=== PATIENT | female | born 1975 | race Caucasian/White ===

== ENCOUNTER 2021-07-27 17:24 | Emergency (ER) | payer SELFPAY ==
[2021-07-27 18:56] VITALS: BP 122/66; PULSE 124; RESP 20; TEMP 37.4; O2SAT 95; BMI 29.0
--- NOTE | 2021-07-27 19:04 | ED_ITS ---
HPI - Female Genitourinary General: Chief complaint: Abdominal Pain Stated complaint: poss uti n/v/headache wants to go to stress unit Time Seen by Provider: 07/27/21 19:32 History of Present Illness: HPI Narrative: Patient is a 46-year-old female comes to the ED with UTI. Patient says symptoms started approximately a week and a half ago. She was taking Azo and her symptoms were improving a little bit but over the past several days they have gotten worse. She is complaining of having bilateral lower abdominal pain, bilateral kidney/mid back pain, increased urine frequency and dysuria. She rates her pain currently an 8 out of 10. She started having nausea and vomiting as well for the past 24 hours. She has had UTI like this before and ended up going to her kidneys and she had to be hospitalized. Patient states that her heart rate is usually elevated over 100 normally Associated symptoms: Reports abdominal pain and nausea; Deny headache(s) Review of Systems Const: Denies: fever(s), chills or fatigue Eyes: Denies: change in vision or eye discomfort ENMT: Denies: throat pain, odynophagia, nasal discharge or nasal congestion Card: Denies: chest pain, palpitations, edema, swelling of feet/ankles, dyspnea on exertion or orthopnea Resp: Denies: dyspnea, productive cough or non-productive cough GI: Reports: abdominal pain, nausea and vomiting; Denies: diarrhea, constipation or hematochezia : Reports: flank pain, dysuria and urinary frequency (increased frequency); Denies: hematuria Musc: Denies: neck pain, back pain or extremity swelling Skin/Breast: Denies: rash or new lesions Neuro: Denies: headache(s), numbness in extremities or weakness in extremities Physical Exam Const: COMMON NORMALS: patient oriented x3 and alert GENERAL APPEARANCE: cooperative and in distress (pt appears uncomfortable and is crying) HENMT: COMMON NORMALS: normocephalic HEAD & SCALP: normocephalic MOUTH: Normal oral and palatal mucosa present THROAT: posterior oropharynx normal and uvula midline Eye: COMMON NORMALS: Equal, round and reactive pupils present PUPIL: Yes Equal, round and reactive pupils present Neck/C-Spine: COMMON NORMALS: supple GENERAL: Yes normal visual inspection Resp: COMMON NORMALS: normal respiratory effort, No retractions, No use of accessory muscles and clear to auscultation bilaterally AUSCULTATION: clear to auscultation bilaterally Cardio: COMMON NORMALS: regular rate, regular rhythm, S1 normal heart sound present, S2 normal heart sound present, No gallops present (Cardio), No clicks present (Cardio), No murmurs present (Cardio) and Peripheral pulses 2+ throughout RATE: regular rate RHYTHM: regular rhythm HEART SOUNDS: S1 normal heart sound present and S2 normal heart sound present PERIPHERAL PULSES: Peripheral pulses 2+ throughout GI: COMMON NORMALS: Normal to inspection, nondistended, normoactive bowel sounds present, Soft to palpation and no masses PALPATION: Yes Soft to palpation and Yes Tenderness to palpation present (GI) Details: LLQ and RLQ : BLADDER/KIDNEY EXAM: Yes CVA tenderness bilateral Back/Pelvis: GENERAL BACK: Yes CVA tenderness Extremity: COMMON NORMALS: normal to inspection Neuro: COMMON NORMALS: patient oriented x3 and moves all extremities SENSORIUM/ORIENTATION: Yes alert Skin: GENERAL SKIN EXAM: dry skin Course ED course: I performed the initial history, physical exam and lab work-up orders on patient while they are being triaged. Patient appears to be uncomfortable and in some pain in his crying during exam. She has some bilateral CVA tenderness and bilateral lower abdominal tenderness. Patient is tachycardic with a pulse of 124, respirations 20 rest of the vitals were stable. Told patient we will get her back into her room as soon as possible that we will start some of the lab work-up here in triage. Reevaluation(s): Reevaluation #1: Patient's pain and nausea is controlled after 2 L of IV fluids, some morphine and nausea meds. Patient says she is feeling better. She is able to keep p.o. fluids down here in the ED and she would like to go home. Patient is still tachycardic and I discussed with her my concerns for that. Patient says her heart rate is usually always elevated above 100. I talked with her about admission, but patient feels a lot better and thinks she would like to try outpatient treatment first. I gave patient strict return to ED precautions and told her to come back to the ED immediately for reevaluation if any worsening symptoms in the next 24 to 48 hours. Patient understood and agree with plan. Time: 22:32 Vital Signs: Vital signs: Vital Signs Temperature 99.3 F 07/27/21 23:31 Pulse Rate 127 H 07/27/21 23:31 Respiratory Rate 18 07/27/21 23:31 Blood Pressure 140/75 07/27/21 23:31 Pulse Oximetry 95 07/27/21 18:56 MDM - Female MDM Narrative: Medical decision making narrative: Patient is a 46-year-old female comes to the ED with UTI symptoms for the past week and a half. She has dysuria and increased urine frequency. She is now having nausea and vomiting and bilateral lower abdominal and bilateral flank pain. Patient has a pulse of 124 at triage the rest of vitals are stable. She is afebrile as well. Exam shows bilateral CVA tenderness along with bilateral lower abdominal/pelvic tenderness. White blood cell count 17.1. The rest of CBC and CMP were unremarkable. Lactic normal at 2.0. UA showed an infection. CT of abdomen pelvis showed some bilateral kidney swelling likely due to pyelonephritis. Patient's pain and nausea was controlled after 2 L of IV fluids, some morphine and nausea meds. Patient says she is feeling better. She is able to keep p.o. fluids down here in the ED and she would like to go home. Patient is still tachycardic and I discussed with her my concerns for that. Patient says her heart rate is usually always elevated above 100. I talked with her about admission, but patient feels a lot better and thinks she would like to try outpatient treatment first. I gave patient strict return to ED precautions and told her to come back to the ED immediately for reevaluation if any worsening symptoms in the next 24 to 48 hours. She was discharged with a prescription for Reglan, ciprofloxacin and some hydrocodone for pain. Follow-up with PCP in 5 to 7 days for reevaluation. Patient understood and agree with plan. Lab Data: Attestation: I reviewed the patient's lab results. Labs: Lab Results 07/27/21 07/27/21 07/27/21 19:00 19:08 19:08 WBC 17.1 10^3/uL H 10 ^3/uL (4.0-10.0) RBC 5.20 10^6/uL 10^6 /uL (4.1-5.3) Hgb 15.9 g/dL H g/dL (11.5-15.3) Hct 45.7 % % (37.0-47.0) MCV 87.9 fl fl (81-99) MCH 30.6 pg pg (28.0-34.0) MCHC 34.8 g/dL g/dL (30.0-36.0) RDW 12.3 % % (12.1-15.1) Plt Count 285 10^3/cmm 10^3 /cmm (130-400) MPV 10.2 fL fL (7.4-10.4) Neut % (Auto) 82.9 % % Lymph % (Auto) 8.3 % % Randall % (Auto) 8.0 % % Eos % (Auto) 0.2 % % Baso % (Auto) 0.2 % % Neut # (Auto) 14.16 10^3/uL H 1 0^3/uL (1.8-7.7) Lymph # (Auto) 1.4 10^3/uL 10^3/ uL (0.8-4.8) Randall # (Auto) 1.4 10^3/uL H 10^ 3/uL (0.2-0.9) Eos # (Auto) 0.0 10^3/uL 10^3/ uL (0.0-0.8) Baso # (Auto) 0.0 10^3/uL 10^3/ uL (0.0-0.1) Nucleated RBC % (a uto) 0 % % Nucleated RBCs # 0.0 /100WBC /100W BC Sodium 132 mmol/L L mmol /L (136-145) Potassium 4.0 mmol/L mmol/L (3.5-5.1) Chloride 96 mmol/L L mmol/ L (98-107) Carbon Dioxide 21 mmol/L L mmol/ L (22-29) Anion Gap 19.0 (5-19) BUN 5 mg/dL L mg/dL (6-20) Creatinine 0.6 mg/dL mg/dL (0.5-0.9) GFR Calculation 108.6 mL/min mL/m in (90-130) Glucose 126 mg/dL H mg/dL (65-115) Calculated Osmolal ity 273 mOsm/kg L mOs m/kg (285-295) Lactic Acid Calcium 8.4 mg/dL L mg/dL (8.5-10.5) Total Bilirubin 0.4 mg/dL mg/dL (0.15-1.2) AST 9 U/L U/L (0-32) ALT 6 U/L U/L (0-33) Alkaline Phosphata se 119 IU/L H IU/L (35-105) Total Protein 6.8 g/dL g/dL (6.6-8.7) Albumin 3.7 g/dL g/dL (3.5-5.2) Globulin 3.1 g/dL g/dL (1.3-4.6) HCG, Qual Urine Color Yellow (Yellow) Urine Appearance Hazy A (CLEAR) Urine pH 7 (5-7) Ur Specific Gravit y 1.010 (1.005-1.030) Urine Protein 3+ H (Negative) Urine Glucose (UA) Norm (Normal) Urine Ketones Negative (Negative) Urine Blood 3+ H (Negative) Urine Nitrate Positive H (Negative) Urine Bilirubin 1+ H (Negative) Urine Urobilinogen 4 mg/dL H mg/dL (Negative) Ur Leukocyte Ana ase 2+ H (Negative) Urine RBC Too numerous to c nt /hpf H /hpf (0-2) Urine WBC Too numerous to c nt /hpf H /hpf (0-5) Ur Squamous Epith Cells 5-10 /hpf H /hpf (0-5) Amorphous Sediment Not Reportable Urine Bacteria 3+ /hpf H /hpf (NONE) 07/27/21 07/27/21 19:08 19:08 WBC RBC Hgb Hct MCV MCH MCHC RDW Plt Count MPV Neut % (Auto) Lymph % (Auto) Randall % (Auto) Eos % (Auto) Baso % (Auto) Neut # (Auto) Lymph # (Auto) Randall # (Auto) Eos # (Auto) Baso # (Auto) Nucleated RBC % (a uto) Nucleated RBCs # Sodium Potassium Chloride Carbon Dioxide Anion Gap BUN Creatinine GFR Calculation Glucose Calculated Osmolal ity Lactic Acid 2.0 mmol/L mmol/L (0.5-2.2) Calcium Total Bilirubin AST ALT Alkaline Phosphata se Total Protein Albumin Globulin HCG, Qual Negative (Negative) Urine Color Urine Appearance Urine pH Ur Specific Gravit y Urine Protein Urine Glucose (UA) Urine Ketones Urine Blood Urine Nitrate Urine Bilirubin Urine Urobilinogen Ur Leukocyte Ana ase Urine RBC Urine WBC Ur Squamous Epith Cells Amorphous Sediment Urine Bacteria Imaging Data: CT Abd/Pel: Attestation: I personally reviewed and interpreted this imaging study as follows: Radiologist's impression: [facility] [address] [address] Scan Report Signed Patient: Anabela Brooks Unit #: [id number] : 1975 Age/Sex: 46 / F ADM Date: 07/27/21 Loc: ER Room/Bed: Attending Dr: Ordering Provider/Ordering MD: Marcelo Robert Date of Service: 07/27/21 Procedure(s): CT kidney stone [address] Accession Number(s): [id number] Report Number: [id number] PROCEDURE INFORMATION: Exam: CT Abdomen And Pelvis Without Contrast Exam date and time: 07/27/2021 9:00 PM Age: 46 years old Clinical indication: Abdominal pain; Prior surgery; Surgery type: Gb. Tubal. ; Patient HX: Bilateral flank pain. ; Additional info: Bilateral flank pain, UTI TECHNIQUE: Imaging protocol: Computed tomography of the abdomen and pelvis without contrast. Radiation optimization: All CT scans at this facility use at least one of these dose optimization techniques: automated exposure control; mA and/or kV adjustment per patient size (includes targeted exams where dose is matched to clinical indication); or iterative reconstruction. COMPARISON: No relevant prior studies available. RADIATION DOSE METRICS: Total DLP (mGy-cm): 693.67 FINDINGS: Liver: Normal. No mass. Gallbladder and bile ducts: Cholecystectomy. Pancreas: Normal. No ductal dilation. Spleen: Normal. No splenomegaly. Adrenal glands: Normal. No mass. Kidneys and ureters: Bilateral right greater than left perinephric edema may reflect a pyelonephritis depending on the clinical scenario. Stomach and bowel: Unremarkable. No obstruction. No mucosal thickening. Appendix: No evidence of appendicitis. Intraperitoneal space: Unremarkable. No free air. No significant fluid collection. Vasculature: Unremarkable. No abdominal aortic aneurysm. Lymph nodes: Unremarkable. No enlarged lymph nodes. Urinary bladder: Urinary bladder wall thickening may reflect a cystitis or be due to nondistention depending on the clinical scenario. Reproductive: Right ovary 2.9 cm cyst is likely follicular. Bones/joints: Unremarkable. No acute fracture. Soft tissues: Unremarkable. CT/CT kidney stone [id number] IMPRESSION: 1. Bilateral right greater than left perinephric edema may reflect a pyelonephritis depending on the clinical scenario. 2. Cholecystectomy. 3. Urinary bladder wall thickening may reflect a cystitis or be due to nondistention depending on the clinical scenario. 4. Right ovary 2.9 cm cyst is likely follicular. Dictated By: Kyler Hubbard MD Signed By: Kyler Hubbard MD Signed Date/Time: 07/27/212214 DD/ 99 Discharge Plan Discharge Patient Disposition: Home Clinical Impression: Pyelonephritis Condition: Stable Prescriptions: New ciprofloxacin HCl 500 mg tablet 500 mg PO BID 10 Days Qty: 20 RF: 0 Reglan 10 mg tablet 10 mg PO Q6H PRN (Reason: nausea and vomiting) Qty: 20 RF: 0 Discharge Orders: Discharge ED (Routine); Ordered 07/27/21 Ordered By: Marcelo Robert Discharge Diet: Advance as tolerated and Clear Liquid Discharge Activity: Increase activity as tolerated Patient Instructions: Opioid Safety, Pyelonephritis Activity Restrictions/Additional Instructions: Follow-up with medical provider as directed in 5 to 7 days for reevaluation. Make sure you drink plenty of fluids and stay hydrated. Take medications as prescribed. Return to the ER or your medical provider if condition worsens. Please read and understand discharge instructions. Thank you for choosing [facility] for your healthcare needs today. Please realize this is an emergency room and that we are providing you with a medical screening exam and this may not be complete and all inclusive of all the testing and or work up that you may need to determine your ailment or severity of your illness. It is very important that you follow up as instructed or that you return to the Emergency Department should you have concerns or if your condition changes or worsens in any way. Coding Level of Care Code ED Biomedical Equipment Tech for Baldo Fwluigi Exam Comprehensive
[2021-07-27 19:16] LABS: Basophils % 0.2 %; Eosinophils % 0.2 %; Hematocrit 45.7 % (37.0-47.0); Hemoglobin 15.9 g/dL (11.5-15.3); Lymphocytes # 1.4 10^3/uL (0.8-4.8); Lymphocytes % 8.3 %; Mean Corpuscular HGB Conc 34.8 g/dL (30.0-36.0); Mean Corpuscular Hemoglobin 30.6 pg (28.0-34.0); Mean Corpuscular Volume 87.9 fl (81-99); Mean Platelet Volume 10.2 fL (7.4-10.4); Monocytes # 1.4 10^3/uL (0.2-0.9); Neutrophils # 14.16 10^3/uL (1.8-7.7); Neutrophils % 82.9 %; Nucleated Red Blood Cells % 0 %; Platelet Count 285 10^3/cmm (130-400); Red Cell Distribution Width 12.3 % (12.1-15.1); White Blood Count 17.1 10^3/uL (4.0-10.0)
[2021-07-27 19:35] LABS: HCG, Serum Qual Negative (Negative)
[2021-07-27 19:36] LABS: Bilirubin Urine 1+ (Negative); Blood Urine 3+ (Negative); Glucose Urine UA Norm (Normal); Ketones Urine Negative (Negative); Nitrate Urine Positive (Negative); Protein Urine 3+ (Negative); Urine Appearance Hazy (CLEAR); Urine Color Yellow (Yellow); Urobilinogen Urine 4 mg/dL (Negative); pH Urine 7 (5-7)
[2021-07-27 19:37] LABS: Add Urine Microscopic? YES; Leukocyte Esterase Urine 2+ (Negative)
[2021-07-27 19:40] LABS: Alanine Aminotransferase 6 U/L (0-33); Albumin Level 3.7 g/dL (3.5-5.2); Alkaline Phosphatase 119 IU/L (35-105); Aspartate Amino Transferase 9 U/L (0-32); Blood Urea Nitrogen 5 mg/dL (6-20); Calcium 8.4 mg/dL (8.5-10.5); Carbon Dioxide 21 mmol/L (22-29); Chloride 96 mmol/L (98-107); Globulin 3.1 g/dL (1.3-4.6); Glomerular Filtration Rate 108.6 mL/min (90-130); Glucose 126 mg/dL (65-115); Osmolality Calculated 273 mOsm/kg (285-295); Sodium 132 mmol/L (136-145); Total Bilirubin 0.4 mg/dL (0.15-1.2); Total Protein 6.8 g/dL (6.6-8.7)
[2021-07-27 19:41] LABS: Add Urine Culture? Yes; Bacteria Urine 3+ /hpf; RBC Urine TOO NUMEROUS TO CNT /hpf (0-2); WBC Urine TOO NUMEROUS TO CNT /hpf (0-5)
[2021-07-27] MEDS: sodium chloride 0.9% 1,000 ML 999 ML IV ×2 (20:45→21:34)
[2021-07-27 20:46] VITALS: RESP 18
[2021-07-27] MEDS: ondansetron 2 mg/ML SDV 2 mL 4 MG IVP (20:46)
[2021-07-27] MEDS: morphine 4 mg/mL SDV 1 mL IVP (20:46)
[2021-07-27] MEDS: cefTRIAXone 2,000 MG in sodium chloride 0.9% (plus) 50 ML 100 MG IV (20:46)
--- NOTE | 2021-07-27 21:00 | CTR_ITS ---
PROCEDURE INFORMATION: Exam: CT Abdomen And Pelvis Without Contrast Exam date and time: 07/27/2021 9:00 PM Age: 46 years old Clinical indication: Abdominal pain; Prior surgery; Surgery type: Gb. Tubal. ; Patient HX: Bilateral flank pain. ; Additional info: Bilateral flank pain, UTI TECHNIQUE: Imaging protocol: Computed tomography of the abdomen and pelvis without contrast. Radiation optimization: All CT scans at this facility use at least one of these dose optimization techniques: automated exposure control; mA and/or kV adjustment per patient size (includes targeted exams where dose is matched to clinical indication); or iterative reconstruction. COMPARISON: No relevant prior studies available. RADIATION DOSE METRICS: Total DLP (mGy-cm): 693.67 FINDINGS: Liver: Normal. No mass. Gallbladder and bile ducts: Cholecystectomy. Pancreas: Normal. No ductal dilation. Spleen: Normal. No splenomegaly. Adrenal glands: Normal. No mass. Kidneys and ureters: Bilateral right greater than left perinephric edema may reflect a pyelonephritis depending on the clinical scenario. Stomach and bowel: Unremarkable. No obstruction. No mucosal thickening. Appendix: No evidence of appendicitis. Intraperitoneal space: Unremarkable. No free air. No significant fluid collection. Vasculature: Unremarkable. No abdominal aortic aneurysm. Lymph nodes: Unremarkable. No enlarged lymph nodes. Urinary bladder: Urinary bladder wall thickening may reflect a cystitis or be due to nondistention depending on the clinical scenario. Reproductive: Right ovary 2.9 cm cyst is likely follicular. Bones/joints: Unremarkable. No acute fracture. Soft tissues: Unremarkable. CT/CT kidney stone [id number] IMPRESSION: 1. Bilateral right greater than left perinephric edema may reflect a pyelonephritis depending on the clinical scenario. 2. Cholecystectomy. 3. Urinary bladder wall thickening may reflect a cystitis or be due to nondistention depending on the clinical scenario. 4. Right ovary 2.9 cm cyst is likely follicular.
[2021-07-27 21:08] VITALS: TEMP 37.1
--- NOTE | 2021-07-27 22:00 | PC.NURSE ---
patient given water for PO challenge
[2021-07-27] MEDS: metoclopramide 5 mg/mL SDV 2 mL 10 MG IVP (22:14)
[2021-07-27] MEDS: HYDROcodone-acetaminophen 5-325 mg Tablet 1 TAB PO (23:01)
[2021-07-27 23:31] VITALS: BP 140/75; PULSE 127; RESP 18; TEMP 37.4
== END 2021-07-27 23:10 | disposition home or self-care (01) ==
PROVIDERS: Emergency Provider Physician Assistant
DX: N12 Tubulo-interstitial nephritis, not specified as acute or chronic (principal)
CPT/HCPCS: 36415; 74176; 80053; 81001; 83605; 84703; 85025; 87040; 87077; 87086; 87186; 96361; 96365; 96375; 99284; J0696; J2270; J2405; J2765; J7030